=== PATIENT | female | born 1970 | race Caucasian/White ===

== ENCOUNTER 2021-03-05 14:57 | Emergency (ER) | payer SELFPAY ==
[2021-03-05 15:12] VITALS: BP 146/80; PULSE 93; RESP 18; TEMP 37.1; O2SAT 100; BMI 27.3
--- NOTE | 2021-03-05 16:19 | ED.GENADULT ---
HPI - General Adult General Chief complaint: Allergic Reaction <SUSHMA Kaba Last Filed: 03/14/21 12:26> Stated complaint: rash all over body, swollen foot <SUSHMA Kaba Last Filed: 03/14/21 12:26> Time Seen by Provider: 03/05/21 16:19 <SUSHMA Kaba Last Filed: 03/14/21 12:26> History of Present Illness HPI narrative: Patient complains of itchy rash all over the body that began today, she took Benadryl with no relief, no difficulty breathing or swallowing no swelling in the throat no wheezing, she does not know what could have caused this reaction <SUSHMA Kaba Last Filed: 03/14/21 12:26> Related Data Home medications: Previous Rx's Medication Instructions Recorded cetirizine 10 mg PO DAILY PRN #14 cap 03/05/21 famotidine [Pepcid] 20 mg PO BID #10 tab 03/05/21 hydroxyzine HCl 50 mg PO BID PRN #14 tab 03/05/21 prednisone 60 mg PO DAILY 3 Days #9 tab 03/05/21 cephalexin 500 mg PO QID 10 Days #40 cap 03/10/21 <SUSHMA Kaba Last Filed: 03/14/21 12:26> Allergies/adverse reactions: Allergies Allergy/AdvReac Type Severity Reaction Status Date / Time No Known Allergies Allergy Verified 03/05/21 15:15 <SUSHMA Kaba Last Filed: 03/14/21 12:26> Review of Systems Review of Systems: Patient complains of itchy rash over body Negatives are no fever and chills no dizziness no weakness no headache no chest pain no shortness of breath no difficulty breathing or swallowing no nausea no vomiting no throat swelling <SUSHMA Kaba Last Filed: 03/14/21 12:26> Yes all other systems are reviewed and are negative <SUSHMA Kaba Last Filed: 03/14/21 12:26> [facility] Past Medical History Source: nursing notes reviewed <SUSHMA Kaba Last Filed: 03/14/21 12:26> Medical History: Medical History (Updated 03/11/21 @ 00:01 by Harley Saab) No known health problems <SUSHMA Kaba Last Filed: 03/14/21 12:26> Social History Social History: Social History Advance Directives: No Advance Directives Information Provided: No Patient : No <SUSHMA Kaba - Last Filed: 03/14/21 12:26> Physical Exam Vital Signs: Vital Signs: Last Vital Signs Temp 98.7 F 03/05/21 15:12 Pulse 93 03/05/21 15:12 Resp 18 03/05/21 15:12 BP 146/80 H 03/05/21 15:12 Pulse Ox 100 03/05/21 15:12 Body Mass Index 27.3 <SUSHMA Kaba - Last Filed: 03/14/21 12:26> Vital Signs: Last Vital Signs Temp 98.7 F 03/05/21 15:12 Pulse 93 03/05/21 15:12 Resp 18 03/05/21 15:12 BP 146/80 H 03/05/21 15:12 Pulse Ox 100 03/05/21 15:12 Body Mass Index 27.3 <Stuart Pearce MD - Last Filed: 04/15/21 18:50> General appearance no acute distress The eyes are clear without redness or discharge The pharynx is clear without swelling of uvula tongue or lips, no drooling speech is normal Neck is supple Chest clear to auscultation bilateral with no adventitious sound Heart no murmur Abdomen soft nontender Skin there is a diffuse or the cardial rash no evidence of cellulitis or abscess no purpura and no petechiae Extremities full range of motion x4 Neuro no gross deficits <SUSHMA Kaba - Last Filed: 03/14/21 12:26> Course Course Course Narrative: Patient with isolated or tick area is treated and is well appearing and is discharged <SUSHMA Kaba - Last Filed: 03/14/21 12:26> I have reviewed the chart <Stuart Pearce MD - Last Filed: 04/15/21 18:50> Discharge Plan Discharge Clinical Impression: Urticaria <SUSHMA Kaba - Last Filed: 03/14/21 12:26> Patient Disposition: Home, Self-Care <SUSHMA Kaba Last Filed: 03/14/21 12:26> Additional Instructions: This rash is usually from an allergic reaction to something but we are not sure what Follow with primary doctor Return any time for difficulty breathing, swelling in the throat, difficulty swallowing, any worse condition or any concerns <SUSHMA Kaba - Last Filed: 03/14/21 12:26> Prescriptions: New cetirizine 10 mg capsule 10 mg PO DAILY PRN (Reason: allergy symptoms) Qty: 14 RF: 0 prednisone 20 mg tablet 60 mg PO DAILY 3 Days Qty: 9 RF: 0 famotidine [Pepcid] 20 mg tablet 20 mg PO BID Qty: 10 RF: 0 hydroxyzine HCl 25 mg tablet 50 mg PO BID PRN (Reason: itching) Qty: 14 RF: 0 No Action cephalexin 500 mg capsule 500 mg PO QID 10 Days Qty: 40 RF: 0 <SUSHMA Kaba - Last Filed: 03/14/21 12:26> Interventions: ED Discharge Assessment Last Done: 03/05/21 16:27 <SUSHMA Kaba - Last Filed: 03/14/21 12:26> Discharge Date/Time: 03/05/21 16:30 <SUSHMA Kaba - Last Filed: 03/14/21 12:26>
[2021-03-05] MEDS: Loratadine 10 MG TABLET PO (16:26)
[2021-03-05] MEDS: Famotidine 20 MG TABLET PO (16:26)
[2021-03-05] MEDS: predniSONE 20 MG TABLET 60 MG PO (16:26)
== END 2021-03-05 16:30 | disposition home or self-care (01) ==
PROVIDERS: Emergency Provider Emergency Medicine
DX: L50.0 Allergic urticaria (principal)
CPT/HCPCS: 99283

== ENCOUNTER 2021-03-10 13:45 | Emergency (ER) | payer MEDICAID, SELFPAY ==
[2021-03-10 14:05] VITALS: BP 119/81; PULSE 77; RESP 16; TEMP 35.8; O2SAT 97; BMI 26.4
--- NOTE | 2021-03-10 14:21 | ED.SKABFB ---
HPI - Skin/Abscess/Foreign Bdy General Chief complaint: Skin/Abscess/Foreign Body Stated complaint: FB IN R FOOT Time Seen by Provider: 03/10/21 14:21 Source: patient Mode of arrival: ambulatory Limitations: language barrier (inter used at bedside) History of Present Illness HPI narrative: 50-year-old female with nonsignificant past medical history who presents to the emergency department with right foot pain and swelling between her 4th and 5th digits. Patient states her right foot was swollen for several days states improvement and she notes the rash between her 4th and 5th digits. Denies any known injury or trauma. Has no concern for foreign body. Denies fevers or chills. Denies calf pain or swelling. Denies any other complaints or concerns. Due to concern she felt she needed to be seen. Related Data Previous Rx's Medication Instructions Recorded cetirizine 10 mg PO DAILY PRN #14 cap 03/05/21 famotidine [Pepcid] 20 mg PO BID #10 tab 03/05/21 hydroxyzine HCl 50 mg PO BID PRN #14 tab 03/05/21 prednisone 60 mg PO DAILY 3 Days #9 tab 03/05/21 cephalexin 500 mg PO QID 10 Days #40 cap 03/10/21 Allergies Allergy/AdvReac Type Severity Reaction Status Date / Time No Known Allergies Allergy Verified 03/05/21 15:15 Review of Systems Review of Systems: Constitutional : No Weight loss, No Fever, No Chills, No Night Sweats, No Fatigue, No Malaise ENT/Mouth : No Hearing loss, No Ear Pain, No Nasal Congestion, No Sinus Pain, No Hoarseness, No sore throat, No Rhinorrhea, No Swallowing Difficulty Eyes: No Eye Pain, No Swelling, No Redness, No Foreign Body, No Discharge, No Vision Changes Cardiovascular : No Chest Pain, No SOB, No Dyspnea on Exertion, No Orthopnea, No Edema, No Palpitations Respiratory : No Cough, No Sputum, No Wheezing, No Smoke Exposure, No Dyspnea Gastrointestinal : No Nausea, No Vomiting, No Diarrhea, No Constipation, No abdominal Pain, No Hematochezia, No Melena Genitourinary : no irregular bleeding, No Dysuria, No Urinary Frequency, No Hematuria, No Urinary Incontinence, No Urgency, No Flank Pain, No Urinary Flow Changes, No Hesitancy Musculoskeletal : No joint pain, No Myalgias, No Joint Swelling Skin: +rash Neuro : No Weakness, No Numbness, No Paresthesias, No Loss of Consciousness, No Dizziness, No Headache Psych : No Anxiety/Panic, No Depression, No SI/HI/AH/VH, No Social Issues, Heme/Lymph: No Bruising, No Bleeding,No Lymphadenopathy Endocrine : No Polyuria, No Polydipsia, No Temperature Intolerance [facility] Past Medical History Attestation statement: The following information was validated with the patient. Source: old records reviewed and nursing notes reviewed Medical History (Updated 03/10/21 @ 15:44 by SUSHMA Nation) No known health problems Social History Social History Advance Directives: No Advance Directives Information Provided: No Patient : No Physical Exam Vital Signs: Vital Signs: Last Vital Signs Temp 96.4 F L 03/10/21 14:05 Pulse 77 03/10/21 14:05 Resp 16 03/10/21 14:05 BP 119/81 03/10/21 14:05 Pulse Ox 97 03/10/21 14:05 Body Mass Index 26.4 vital signs have been reviewed as normal and appeared to be correct. Blood pressure normal. Heart rate normal. Respiration rate normal. Temperature normal. Oxygen saturation normal. Appearance: Alert. Oriented X3. No acute distress. Head: Normal external exam. Normocephalic. Atraumatic. No Blount signs noted. No raccoon eyes noted Eyes: Conjunctiva and sclera normal. ENT: EAC normal. Moist mucous membranes. No drooling noted. No muffled voice noted. Neck: Normal inspection. Neck supple. FROM. No meningeal signs. CVS: Pulses normal throughout. Respiratory: No respiratory distress. Painless inspiration. No accessory muscle usage noted Abdomen: No visible injury noted. Back: Full range of motion noted. Skin: Skin warm and dry. Normal skin color. Normal skin turgor. Redness with peeling of the skin noticed between the right 4th and 5th metatarsals. No blisters noted. No active drainage or discharge. Extremities: No lower extremity edema. Extremities exhibit normal range of motion. Good distal pulses good capillary refill, neurovascularly intact. Neuro: Oriented X 3. No motor deficit. No sensory deficit. MDM - Skin/Abscess/Foreign Bdy MDM Narrative Medical decision making narrative: Patient's vital signs are stable and she is afebrile. Patient presenting to the ED in a rash noted between right foot 4th and 5th metatarsals on exam mild cellulitis noted patient has no concern for foreign body denies any recent injury or trauma. Given location and recent swelling of the foot that is resolved feel this is due to increased friction/moisture. Will treat with Keflex and advised close outpatient follow-up and strict return precautions if symptoms persist good distal pulses good capillary fill no acute concern for neurovascular compromise or DVT. No bony exposure no recent injury or trauma no acute concern for osteomyelitis. Discharge Plan Discharge Clinical Impression: Cellulitis Qualifiers: Site of cellulitis of extremity: toe Laterality: right Patient Disposition: Home, Self-Care Instructions: Cellulitis (ED) Additional Instructions: You were seen in the emergency department today for redness and pain to the right foot. There was signs of cellulitis also noticed a skin infection that will improve over time with antibiotics. Please also do warm Epson salt soaks as discussed keep wound clean and dry and follow-up with your doctor if things do not improve in the next 2-3 days or return to the ED if you are having trouble being seen. Prescriptions: New cephalexin 500 mg capsule 500 mg PO QID 10 Days Qty: 40 RF: 0 No Action cetirizine 10 mg capsule 10 mg PO DAILY PRN (Reason: allergy symptoms) Qty: 14 RF: 0 prednisone 20 mg tablet 60 mg PO DAILY 3 Days Qty: 9 RF: 0 famotidine [Pepcid] 20 mg tablet 20 mg PO BID Qty: 10 RF: 0 hydroxyzine HCl 25 mg tablet 50 mg PO BID PRN (Reason: itching) Qty: 14 RF: 0 Referrals: [facility] [Primary Care Provider] - 3 days Interventions: ED Discharge Assessment Last Done: 03/10/21 15:57 Discharge Date/Time: 03/10/21 15:58 Print Language: Sinhala
== END 2021-03-10 15:58 | disposition home or self-care (01) ==
PROVIDERS: Emergency Provider Emergency Medicine Emergency Medical Services
DX: R21 Rash and other nonspecific skin eruption (principal); L03.115 Cellulitis of right lower limb; M79.671 Pain in right foot
CPT/HCPCS: 99283